=== PATIENT | female | born 1990 | race Caucasian/White ===

== ENCOUNTER → 2018-01-09 10:19 | Outpatient (CLI) | payer OTHER, SELFPAY ==
[2018-01-09 11:02] LABS: Add Manual Diff / Slide Review NO; Basophils Percent Auto 0.8 % (0-2); Eosinophils Percent Auto 0.6 % (2-4); Hematocrit 35.5 % (36-46); Hemoglobin 12.3 g/dL (12.0-16.0); Lymphocytes Percent Auto 23.2 % (25-40); Mean Corpuscular HGB Conc 34.6 % (30-36); Monocytes Percent Auto 5.5 % (3-14); Neutrophils Absolute Auto 4200 /uL (3000-5900); Neutrophils Percent Auto 69.9 % (50-75); Platelet Count 228 X10^3/uL (150-400); Red Blood Cell Count 4.38 X10^6/uL (4.0-5.2); Red Cell Distribution Width 14.2 % (11.6-14.8)
[2018-01-09 13:59] LABS: Hepatitis B Surface Antigen NEGATIVE s/c (NEGATIVE); Rubella Antibody IgG 1.7 IU/mL (>15)
[2018-01-09 15:20] LABS: HIV 1 and 2 Antibody NEGATIVE (NEGATIVE); Hep C Virus Ab w/Reflex Quant NEGATIVE s/c (NEGATIVE)
[2018-01-11 14:40] LABS: HSV 2 IGG AB < 0.90 index (< 0.90); HSV1IGG < 0.90 index (< 0.90)
[2018-01-16 09:10] LABS: Rapid Plasma Reagin NON REACTIVE
== END ==
PROVIDERS: Visit Provider Specialist
DX: Z34.91 Encounter for supervision of normal pregnancy, unspecified, first trimester (principal)
CPT/HCPCS: 36415; 80055; 86695; 86696; 86703; 86787; 86803; 86850; 86900; 86901; 87086

== ENCOUNTER 2018-05-23 11:11 | Emergency (ER) | payer OTHER, SELFPAY ==
[2018-05-23 11:13] VITALS: BP 125/80; PULSE 100; RESP 18; TEMP 36.4; O2SAT 98; BMI 60.6
--- NOTE | 2018-05-23 12:22 | ED.FEMALEGU ---
HPI - Female Genitourinary <ARETHA Lombardi - Last Filed: 05/23/18 21:51> General Chief complaint: Urogenital-Female Stated complaint: UTI SPREAD TO KIDNEYS Time Seen by Provider: 05/23/18 12:05 Source: patient Mode of arrival: ambulatory Limitations: no limitations History of Present Illness HPI Narrative: 28-year-old healthy female that is a nonsmoker that is currently 29 weeks she is 2 para 1. She is here for complaint of having urinary frequency and right flank pain over the past day. She was treated over the phone of for urinary tract infection by her Ob and has been taking Macrobid. She reports that the symptoms have not resolved. She denies having any fever. No nausea vomiting. No abdominal pain. She denies any vaginal discharge or bleeding. She is tolerating p.o. intake well. Complaint: UTI Related Data Home Medications Medication Instructions Recorded Confirmed nitrofurantoin monohyd/m-cryst 1 tab PO BID 05/23/18 05/23/18 Previous Rx's Medication Instructions Recorded wpskyrrtnj-adpgwjsdngkgf-zitjzdcs 1 cap PO Q4H PRN #30 cap 01/25/18 50 mg-300 mg-40 mg capsule sulfamethoxazole-trimethoprim 1 tab PO Q12H #14 tab 05/23/18 Allergies Allergy/AdvReac Type Severity Reaction Status Date / Time Penicillins Allergy Mild Rash Verified 05/23/18 11:17 Review of Systems <ARETHA Lombardi - Last Filed: 05/23/18 21:51> Constitutional Denies chills, Denies fever(s), Denies lethargy and Denies weakness Eyes Denies change in vision, Denies eye discharge, Denies irritation and Denies loss of vision ENT Ears, Nose, Mouth, and Throat: Denies change in voice, Denies neck pain and Denies sore throat Cardiovascular Denies chest pain, Denies irregular heart rhythm, Denies lightheadedness, Denies palpitations, Denies dyspnea, Denies dyspnea on exertion and Denies orthopnea Respiratory Denies cough, Denies dyspnea, Denies dyspnea on exertion and Denies wheezing Gastrointestinal Gastrointestinal: Denies abdominal pain, Denies change in bowel habits, Denies diarrhea, Denies nausea and Denies vomiting Genitourinary Comments: Urinary frequency and right flank pain Musculoskeletal Denies neck pain Integumentary/Breasts Denies pruritus, Denies erythema, Denies rash and Denies wounds Neurologic Denies confusion, Denies loss of vision and Denies weakness Psychiatric Denies anxiety, Denies confusion, Denies depression, Denies homicidal ideation and Denies suicidal ideation Endocrine Denies palpitations Hematologic/Lymphatic Denies easy bruising Allergic/Immunologic Denies wheezing PFSH <ARETHA Lombardi - Last Filed: 05/23/18 21:51> Social History Smoking Status: Never smoker Social History Smoking Status: Never smoker Exam <ARETHA Lombardi - Last Filed: 05/23/18 21:51> Initial Vital Signs Initial Vital Signs: Vital Signs Temperature 97.5 F L 05/23/18 11:13 Pulse Rate 100 H 05/23/18 11:13 Respiratory Rate 18 05/23/18 11:13 Blood Pressure 125/80 05/23/18 11:13 Pulse Oximetry 98 05/23/18 11:13 Const General: cooperative and well developed Nutritional Appearance: well nourished Orientation: alert, awake, oriented x3 and not confused HENMT Mouth: oral mucosae normal and moist mucous membranes Eyes Conjunctivae: conjunctivae normal Sclera: sclerae normal Pupils: PERRL EOM: EOM intact bilaterally Resp Effort & Inspection: normal respiratory effort, able to speak in complete sentences, no respiratory distress and no use of accessory muscles Auscultation: clear to auscultation bilaterally, no rales, no rhonchi and no wheezes Cardio Rate: regular rate Rhythm: regular rhythm Heart Sounds: no click, no gallops, no murmurs and no rubs GI Inspection: non-distended Palpation: soft, no hepatosplenomegaly, No guarding, No pulsatile mass and No tender Auscultation: normal bowel sounds General: No CVA tenderness Skin General: no rashes or lesions noted, No jaundice and No petechiae Neuro General: alert, oriented x3, gait normal and no focal motor deficits Speech: speech normal <Bryon Stark DO - Last Filed: 05/24/18 18:21> Initial Vital Signs Initial Vital Signs: Vital Signs Temperature 97.5 F L 05/23/18 11:13 Pulse Rate 100 H 05/23/18 11:13 Respiratory Rate 18 05/23/18 11:13 Blood Pressure 125/80 05/23/18 11:13 Pulse Oximetry 98 05/23/18 11:13 Course <ARETHA Lombardi - Last Filed: 05/23/18 21:51> Orders Ordered: ED Orders 05/23/18 12:20 Urine Microscopic Stat 05/23/18 13:14 Urine Culture Stat Vital Signs - 8 hr 05/23/18 11:13 05/23/18 12:25 05/23/18 12:51 Temperature 97.5 F L Pulse Rate 100 H 109 H 94 H Respiratory Rate 18 17 Blood Pressure 125/80 Blood Pressure [Right Arm] 117/65 Pulse Oximetry 98 98 <Bryon Stark DO - Last Filed: 05/24/18 18:21> Orders Ordered: ED Orders 05/23/18 12:20 Urine Microscopic Stat 05/23/18 13:14 Urine Culture Stat Vital Signs - 8 hr 05/23/18 11:13 05/23/18 12:25 05/23/18 12:51 Temperature 97.5 F L Pulse Rate 100 H 109 H 94 H Respiratory Rate 18 17 Blood Pressure 125/80 Blood Pressure [Right Arm] 117/65 Pulse Oximetry 98 98 MDM - Female Genitourinary <ARETHA Lombardi - Last Filed: 05/23/18 21:51> Lab Data Lab Results 05/23/18 Range/Units 12:20 Urine RBC None seen (0-5/HPF) Urine WBC 5-10/hpf H (0-5/HPF) Ur Squamous Epith Cells 10-30 /hpf H Urine Bacteria None seen (None) Ur Culture Indicated? Cult not indicated Urine Dip Bedside Urine Glucose Negative Bedside Urine Bilirubin - Negative Bedside Urine Ketone +/- 5 Urine Specific [place] 1.030 Bedside Urine Occult Blood - Negative Bedside Urine pH 6.0 Bedside Urine Protein +/- 15 Bedside Urine Nitrite - Negative Bedside Urine Leukocytes +/- 15 Esterase MDM Narrative Medical decision making narrative: Urine dip was obtained and shows positive for leuko esterase and protein. Urine micro shows white count of 5 to 10 although a 10-30 epithelials. No urine culture or sensitivity is available at this timeframe. Urine culture is ordered and is pending. Will change antibiotic from Macrobid to Septra. Close follow up with OB in the next couple of days for re-evaluation. He [id number] Tylenol as needed for any discomfort. For any worsening symptoms return to the emergency room. Plenty of fluids. heart tones were obtained and were normal. <Bryon Stark DO - Last Filed: 05/24/18 18:21> Lab Data Lab Results 05/23/18 Range/Units 12:20 Urine RBC None seen (0-5/HPF) Urine WBC 5-10/hpf H (0-5/HPF) Ur Squamous Epith Cells 10-30 /hpf H Urine Bacteria None seen (None) Ur Culture Indicated? Cult not indicated Urine Dip Bedside Urine Glucose Negative Bedside Urine Bilirubin - Negative Bedside Urine Ketone +/- 5 Urine Specific [place] 1.030 Bedside Urine Occult Blood - Negative Bedside Urine pH 6.0 Bedside Urine Protein +/- 15 Bedside Urine Nitrite - Negative Bedside Urine Leukocytes +/- 15 Esterase Discharge Plan Departure Patient Disposition: Home Clinical Impression: Urinary tract infection Qualifiers: Urinary tract infection type: acute cystitis Hematuria presence: without hematuria Qualified Code(s): N30.00 - Acute cystitis without hematuria Discharge Date/Time: 05/23/18 13:32 Interventions: ED Discharge Assessment Last Done: 05/23/18 13:31 Instructions: Urinary Tract Infection Activity Restrictions/Additional Instructions: Urinalysis indicates urinary tract infection. Will change antibiotic from a Macrobid to Septra to cover for starting kidney infection. Follow up with your primary care provider/OB in the next couple of days for re-evaluation. Plenty of fluids. Jihn-rvm-wwlfhqe Tylenol as needed for any discomfort. heart tones were obtained were normal. For any worsening symptoms return to the emergency room. Prescriptions: New sulfamethoxazole-trimethoprim 800-160 mg tablet 1 tab PO Q12H Qty: 14 RF: 0 No Action bigonqzduk-dlghybwvblest-qdhc [Fioricet] 50-300-40 mg capsule 1 cap PO Q4H PRN (Reason: migraine headache) Qty: 30 RF: 0 nitrofurantoin monohyd/m-cryst 100 mg capsule 1 tab PO BID RF: 0 Referrals: [facility] [Provider Group] <Bryon Stark DO - Last Filed: 05/24/18 18:21> Cosign ED Attending Marielature Attestation: I was immediately available in the department for consultation. Documentation has been reviewed. I agree with assessment and plan.
[2018-05-23 12:25] VITALS: BP 117/65; PULSE 109; RESP 17; O2SAT 98
[2018-05-23 12:49] LABS: Bacteria Urine None Seen; RBC Urine None Seen (0-5/HPF)
[2018-05-23 12:51] VITALS: PULSE 94
[2018-05-23 13:02] LABS: Culture Indicated Urine Cult Not Indicated; Squamous Epithelial Cell Urine 10-30 /HPF; WBC Urine 5-10/HPF (0-5/HPF)
== END 2018-05-23 13:32 | disposition home or self-care (01) ==
PROVIDERS: Emergency Provider Nurse Practitioner Family
DX: O23.43 Unspecified infection of urinary tract in pregnancy, third trimester (principal); Z3A.29 29 weeks gestation of pregnancy
CPT/HCPCS: 59025; 81003; 81015; 99283; G0378; G0379

== ENCOUNTER 2018-05-23 13:41 | Outpatient (CLI) | payer OTHER, SELFPAY | END 2018-05-23 14:55 | disposition home or self-care (01) | LOC: LABOR 14:30 → OB 05-25 11:39 | PROVIDERS: Visit Provider Family Medicine | DX: Z34.90 Encounter for supervision of normal pregnancy, unspecified, unspecified trimester (principal) | CPT/HCPCS: 59025; G0378; G0379 ==

== ENCOUNTER 2018-10-13 10:06 | Emergency (ER) | payer OTHER, SELFPAY ==
--- NOTE | 2018-10-13 10:43 | DI.RAD.S_ITS ---
PROCEDURE: XR ANKLE LT MIN 3V INDICATIONS: injury swelling TECHNIQUE: 3 views of the ankle were acquired. COMPARISON: None. FINDINGS: Bones: No fractures or dislocations. Ankle mortise is normally aligned. No suspicious bony lesions. Soft tissues: No tibiotalar joint effusion. Achilles tendon appears normal. IMPRESSION: No source of pain after trauma is seen. Dictated by: Jeremiah Dunn M.D. on 10/13/2018 at 11:19 Approved by: Jeremiah Dunn M.D. on 10/13/2018 at 11:19
--- NOTE | 2018-10-13 10:46 | ED.LOWEXIN ---
HPI - Extremity Injury (Lower) General Chief Complaint: Extremity Injury, Lower Stated Complaint: left ankle injury x1 day Time Seen by Provider: 10/13/18 10:40 Source: patient Mode of arrival: ambulatory Limitations: no limitations History of Present Illness HPI Narrative: Patient is a 28-year-old female who presents with left ankle pain. She says that she slipped going down a hill yesterday while caring her week old son. No other injury she heard a pop she is able to toe-touch. She denies numbness or tingling. She sprained her ankle before she says this hurts a little more. She has taken ibuprofen without much relief. complaint: ankle injury Onset (ago): day(s) (1) Related Data Home Medications Medication Instructions Recorded Confirmed nitrofurantoin monohyd/m-cryst 1 tab PO BID 05/23/18 05/23/18 Previous Rx's Medication Instructions Recorded rgxmeeujna-peawfxkvysfib-gzpwohoa 1 cap PO Q4H PRN #30 cap 01/25/18 50 mg-300 mg-40 mg capsule sulfamethoxazole-trimethoprim 1 tab PO Q12H #14 tab 05/23/18 Allergies Allergy/AdvReac Type Severity Reaction Status Date / Time Penicillins Allergy Mild Rash Verified 05/23/18 11:17 Review of Systems Review of Systems GENERAL: Denies chills,fever HEENT: Denies throat pain RESPIRATORY: Denies dyspnea, cough, wheezing CARDIOVASCULAR: Denies chest pain, palpitations GASTROINTESTINAL: Denies nausea, vomiting MUSCULOSKELETAL: See HPI SKIN: No rash, no laceration, no pruritus NEUROLOGIC: Denies weakness, dizziness, headache, numbness 8 point review of systems is negative except for those stated above and HPI PFSH Medical History Patient denies significant medical history (Acute) Social History Smoking Status: Never smoker Social History Smoking Status: Never smoker Exam Initial Vital Signs Initial Vital Signs: Vital Signs Temperature 97.8 F 10/13/18 10:51 Pulse Rate 65 10/13/18 10:51 Respiratory Rate 18 10/13/18 10:51 Blood Pressure 108/80 10/13/18 10:51 Pulse Oximetry 100 10/13/18 10:51 GENERAL: Obese well-appearing female no acute distress CARDIOVASCULAR: peripheral pulses in tact, cap refill <2 sec RESPIRATORY: No respiratory distress, speaks in full sentences without difficulty EXTREMITIES: Normal range of motion, no clubbing or edema. Neurovascularly intact. Left ankle swelling lateral malleoli no gross bony deformities neurovascularly intact NEUROLOGICAL: Cranial nerves II through XII grossly intact. Normal gait and speech. SKIN: Warm, dry, no petechiae, no rashes or lesions. Course Orders Ordered: ED Orders 10/13/18 10:43 XR ankle LT min 3V Stat Vital Signs - 8 hr 10/13/18 10:51 10/13/18 11:40 Temperature 97.8 F Pulse Rate 65 71 Respiratory Rate 18 15 Blood Pressure 108/80 Blood Pressure [Left Arm] 114/63 Pulse Oximetry 100 100 MDM - Extremity Injury (Lower) Imaging Data Left ankle: Radiologist's impression: PROCEDURE: XR ANKLE LT MIN 3V INDICATIONS: injury swelling TECHNIQUE: 3 views of the ankle were acquired. COMPARISON: None. FINDINGS: Bones: No fractures or dislocations. Ankle mortise is normally aligned. No suspicious bony lesions. Soft tissues: No tibiotalar joint effusion. Achilles tendon appears normal. IMPRESSION: No source of pain after trauma is seen. Dictated by: Jeremiah Dunn M.D. on 10/13/2018 at 11:19 Approved by: Jeremiah Dunn M.D. on 10/13/2018 at 11:19 Discharge Plan Departure Patient Disposition: Home Clinical Impression: Ankle sprain and strain Discharge Date/Time: 10/13/18 12:01 Interventions: ED Discharge Assessment Last Done: 10/13/18 12:01 Instructions: Ankle Sprain Activity Restrictions/Additional Instructions: *You have been diagnosed with left ankle sprain *What to do: No fracture identified today. Increase activity as tolerated. Breast ice elevate. May require physical therapy if still having pain. May also require repeat x-ray in 7-10 days with her PCP still having excruciating pain. *Continue to take medications as directed *Follow up with your primary care provider in 2-3 days *Return to ER if you should have increasing pain swelling, or any new, worsening or concerning symptoms Prescriptions: No Action uzojhvgbml-wqvsdxkrmdheq-pedb [Fioricet] 50-300-40 mg capsule 1 cap PO Q4H PRN (Reason: migraine headache) Qty: 30 RF: 0 nitrofurantoin monohyd/m-cryst 100 mg capsule 1 tab PO BID RF: 0 sulfamethoxazole-trimethoprim 800-160 mg tablet 1 tab PO Q12H Qty: 14 RF: 0
[2018-10-13 10:51] VITALS: BP 108/80; PULSE 65; RESP 18; TEMP 36.6; O2SAT 100; BMI 133.7
[2018-10-13 11:40] VITALS: BP 114/63; PULSE 71; RESP 15; O2SAT 100
== END 2018-10-13 12:01 | disposition home or self-care (01) ==
PROVIDERS: Emergency Provider Emergency Medicine
DX: S93.402A Sprain of unspecified ligament of left ankle, initial encounter (principal); W18.49XA Other slipping, tripping and stumbling without falling, initial encounter
CPT/HCPCS: 73610; 99282; 99283

== ENCOUNTER 2019-01-08 07:09 | Emergency (ER) | payer OTHER, SELFPAY ==
[2019-01-08 07:20] VITALS: BP 129/81; PULSE 74; RESP 16; TEMP 36.5; O2SAT 100; BMI 63.1
--- NOTE | 2019-01-08 07:36 | ED_ITS ---
HPI - URI/Sore Throat General Chief Complaint: Upper Respiratory Symptoms Stated Complaint: something lodged in throat Time Seen by Provider: 01/08/19 07:24 Source: patient Mode of arrival: Ambulatory Limitations: no limitations History of Present Illness HPI Narrative: Patient is a 28 female who presents with something stuck in her throat. She says that yesterday she was eating a sandwich with moore on it she did not to the moore all the way she felt it go down but may be get stuck. She was drinking water to get it to go the rest of the way down she was doing fine afterwards. However last night when she laid down to go to sleep she was woken by extreme acid reflux. She also is noticing that it still feels some discomfort in her sockets. She is able to eat and drink normally she denies any shortness of breath nausea vomiting or abdominal pain. She does have a history of acid reflux she took Zantac. Related Data Home Medications Medication Instructions Recorded Confirmed nitrofurantoin monohyd/m-cryst 1 tab PO BID 05/23/18 05/23/18 Previous Rx's Medication Instructions Recorded hswowzkjce-dtxkftyhrmpsj-cgdovzmk 1 cap PO Q4H PRN #30 cap 01/25/18 50 mg-300 mg-40 mg capsule sulfamethoxazole-trimethoprim 1 tab PO Q12H #14 tab 05/23/18 Allergies Allergy/AdvReac Type Severity Reaction Status Date / Time Penicillins Allergy Mild Rash Verified 05/23/18 11:17 Review of Systems Review of Systems Narrative: GENERAL: Denies chills, fatigue, malaise, fever, sweats, travel HEENT: See HPI RESPIRATORY: Denies dyspnea, cough, wheezing, hemoptysis, sputum. CARDIOVASCULAR: Denies chest pain, palpitations, orthopnea, edema GASTROINTESTINAL: Denies nausea, vomiting, abdominal pain, diarrhea, constipation, melena. : Denies dysuria, frequency, incontinence, hematuria, urinary retention, flank pain. MUSCULOSKELETAL: Denies weakness, joint pain, or bony pain SKIN: No rash, no erythema, no pruritus NEUROLOGIC: Denies weakness, dizziness, headache, numbness, change in speech, confusion PSYCHIATRIC: No concerning psychosocial issues. 12 point review of systems is negative except for those stated above and HPI [facility] Medical History Patient denies significant medical history (Acute) Social History Smoking Status: Never smoker Social History Smoking Status: Never smoker Exam Initial Vital Signs Initial Vital Signs: Vital Signs Temperature 97.7 F 01/08/19 07:20 Pulse Rate 74 01/08/19 07:20 Respiratory Rate 16 01/08/19 07:20 Blood Pressure 129/81 01/08/19 07:20 Pulse Oximetry 100 01/08/19 07:20 GENERAL: Overweight young female and in no acute distress. HEENT: Head atraumatic,EOMI, pupils reactive, face symmetric CARDIOVASCULAR: Regular rate and rhythm without murmurs, rubs or gallops. RESPIRATORY: Breath sounds equal bilaterally, no wheezes rales or rhonchi. ABDOMEN: Soft, nontender. Normoactive bowel sounds all 4 quadrants. No guarding or rebound. EXTREMITIES: Normal range of motion, no clubbing or edema. Neurovascularly intact NEUROLOGICAL: Alert and oriented x4.Normal gait and speech. Cranial nerves II through XII grossly intact. SKIN: Warm, dry, no laceration, no petechiae, no rashes or lesions. Course Orders Ordered: Discontinued Medications Al Hydrox/Mg Hydrox/Simethicone 20 ml/ Lidocaine HCl 15 ml 0 ml PO NOW ONE Stop: 01/08/19 07:39 Last Admin: 01/08/19 07:52 Dose: 20 ml Documented by: MOOK Vital Signs Vital signs: Vital Signs - 8 hr 01/08/19 07:20 01/08/19 08:17 Temperature 97.7 F Pulse Rate 74 76 Respiratory Rate 16 16 Blood Pressure 129/81 Blood Pressure [Left Arm] 112/85 Pulse Oximetry 100 100 MDM - URI/Sore Throat MDM Narrative Medical decision making narrative: She felt a little bit better after Coke. She felt like the ball in her throat went away. Difficult to tell after the GI cocktail but overall feels little bit better. Does not sound as though impacted or obstructed esophageal foreign body. She is managing her own secretions she is able to eat and drink. Think this is more likely irritation to the esophagus is after unchewed piece of moore. Discharge Plan Departure Patient Disposition: Home Clinical Impression: Esophagus, foreign body Qualifiers: Encounter type: initial encounter Qualified Code(s): T18.108A - Unspecified foreign body in esophagus causing other injury, initial encounter Discharge Date/Time: 01/08/19 08:18 Instructions: Steakhouse Syndrome Activity Restrictions/Additional Instructions: *You have been diagnosed with esophageal foreign body *What to do: The food has likely scrape the inside of her esophagus which is what you are feeling. This should heal over the next few days. If it is still causing discomfort I recommend that he see your primary care physician in may require further testing *Continue to take medications as directed Continue her acid reflux medicine as prescribed *Follow up with your primary care provider in 2-3 days *Return to ER if you should have increased pain, difficulty breathing inability to swallow or any new, worsening or concerning symptoms Prescriptions: No Action mnjyajwaqj-cwpjfkwiantgs-hfls [Fioricet] 50-300-40 mg capsule 1 cap PO Q4H PRN (Reason: migraine headache) Qty: 30 RF: 0 nitrofurantoin monohyd/m-cryst 100 mg capsule 1 tab PO BID RF: 0 sulfamethoxazole-trimethoprim 800-160 mg tablet 1 tab PO Q12H Qty: 14 RF: 0 Referrals: [facility] [Outside]
--- NOTE | 2019-01-08 07:37 | PC.NURSE ---
pt AAOx3 and managing secretions. reports she ate a sandwich yesterday and thinks a piece of moore scratched her throat. reports on occasion feeling like she needs to burp which relieves the sensation for a few seconds. given soda to sip on which she is managing appropriately. plan for GI cocktail. will monitor
[2019-01-08] MEDS: MAG HYDROX/ALUMINUM/SIMETH SUS 20 ML, LIDOCAINE VISCOUS 2% 15 ML PO (07:52)
[2019-01-08 08:17] VITALS: BP 112/85; PULSE 76; RESP 16; O2SAT 100
== END 2019-01-08 08:18 | disposition home or self-care (01) ==
PROVIDERS: Emergency Provider Emergency Medicine
DX: T18.108A Unspecified foreign body in esophagus causing other injury, initial encounter (principal)
CPT/HCPCS: 99283

== ENCOUNTER 2022-03-17 18:31 | Emergency (ER) | payer OTHER, SELFPAY ==
[2022-03-17 19:00] VITALS: BP 145/87; PULSE 90; RESP 15; TEMP 36.8; O2SAT 100; BMI 52.9
[2022-03-17] MEDS: IBUPROFEN 400 MG TABLET 800 MG PO (19:10)
[2022-03-17 19:56] LABS: Influenza A - CEPHEID Flu A POSITIVE (NEGATIVE); Influenza B - CEPHEID Flu B NEGATIVE (NEGATIVE); Respiratory Syncytial Virus Negative (Negative)
[2022-03-17 20:03] LABS: COVID-19 CEPHEID 4-PLEX PCR Negative (Negative)
[2022-03-17 20:59] VITALS: BP 143/90; PULSE 83; RESP 17; O2SAT 98
--- NOTE | 2022-03-17 21:31 | ED.GENADULT ---
HPI - General Adult General Chief complaint: Upper Respiratory Symptoms Stated complaint: Fever 102, Coughing up brown mucus Time Seen by Provider: 03/17/22 21:01 Source: patient Mode of arrival: Ambulatory History of Present Illness HPI narrative: 31-year-old woman with a history of PCOS currently on pioglitazone for weight loss for a weight loss clinic but does not have a primary care doctor presents on day 3 with fever, cough, body aches, runny nose complains low pelvic pain and back pain that was worse yesterday seems to be getting better today. Her son was diagnosed with influenza on Tuesday in her was diagnosed with COVID on Tuesday. She is had some thick mucus/sputum production after taking Mucinex. She is not complaining of wheezing. She has had a headache, weakness and fatigue. At some point in the past, she had abdominal pain and was eventually diagnosed with a lower lobe pneumonia. At this point she is fairly adamant about requesting a chest x-ray to confirm that she does not have pneumonia. Related Data Home Medications Medication Instructions Recorded Confirmed nitrofurantoin 1 tab PO BID 05/23/18 05/23/18 monohydrate/macrocrystals 100 mg capsule Previous Rx's Medication Instructions Recorded grghyikdya-ubnzqrafzttxw-nauxtxgy 1 cap PO Q4H PRN migraine headache 01/25/18 50 mg-300 mg-40 mg capsule #30 caps (Fioricet) sulfamethoxazole 800 1 tab PO Q12H #14 tabs 05/23/18 mg-trimethoprim 160 mg tablet oxycodone-acetaminophen 5 mg-325 1 tab PO Q6H PRN pain #10 tabs 03/17/22 mg tablet Allergies Allergy/AdvReac Type Severity Reaction Status Date / Time Penicillins Allergy Mild Rash Verified 03/17/22 19:00 Review of Systems Review of Systems Narrative: Remainder of complete review of systems is otherwise unremarkable except for that included in the HPI. Patient History Medical History (Updated 03/17/22 @ 21:39 by Rachel Watters MD) Patient denies significant medical history Social History Smoking Status: Never smoker Smoking Status: Never smoker alcohol intake frequency: 0-2 drinks per day Substance Use Type: does not use Exam Initial Vital Signs Initial Vital Signs: Vital Signs Temperature 98.3 F 03/17/22 19:00 Pulse Rate 90 03/17/22 19:00 Respiratory Rate 15 03/17/22 19:00 Blood Pressure 145/87 H 03/17/22 19:00 Pulse Oximetry 100 03/17/22 19:00 Oxygen Delivery Method 03/17/22 19:00 General: Appears to feel generally unwell but in no acute distress. Able to give a complete and coherent history. Well-nourished well-developed HEENT: Moist mucous membranes, mildly injected sclera with reactive pupils, Neck: No cervical adenopathy, supple Respiratory: Lungs are clear to auscultation, no wheezing no rales no rhonchi. Full and symmetrical air movement Cardiac: Regular rate and rhythm no murmurs no bruits Abdomen: Soft, nontender, good bowel tones, no flank pain Skin: Warm and dry, no rashes Neurologic: Grossly neurologically intact with no obvious asymmetries or abnormalities Extremities: No trauma, well perfused Psych: Cooperative, appropriate insight and affect Course Orders Ordered: ED Orders 03/17/22 21:33 XR chest 1V Stat Discontinued Medications Benzonatate (Benzonatate 100 Mg Capsule) 100 mg PO NOW ONE Stop: 03/17/22 21:32 Last Admin: 03/17/22 22:24 Dose: 100 mg Documented By: JORGE ALBERTO Ibuprofen (Ibuprofen 400 Mg Tablet) 800 mg PO NOW ONE Stop: 03/17/22 19:05 Last Admin: 03/17/22 19:10 Dose: 800 mg Documented By: NIGEL Oxycodone/Acetaminophen (Oxycodone/Apap 5/325 Prepack) 1 bottle MISC SEEINSTR ONE Stop: 03/17/22 21:32 Last Admin: 03/17/22 22:25 Dose: 1 bottle Documented By: JORGE ALBERTO Vital Signs Vital signs: Vital Signs - 8 hr 03/17/22 22:38 Temperature 99.2 F Pulse Rate 80 Respiratory Rate 16 Blood Pressure 133/75 Pulse Oximetry 98 Oxygen Delivery Method Room Air Medical Decision Making Lab Data Labs: Lab Results 03/17/22 Range/Units 19:04 SARS-CoV-2 (PCR) Negative (Negative) Influenza A (RT-PCR) Flu a positive H (NEGATIVE) Influenza B (RT-PCR) Flu b negative (NEGATIVE) RSV (PCR) Negative (Negative) MDM Narrative Medical decision making narrative: Otherwise healthy 31-year-old woman on day 3 of influenza a with classic symptoms of influenza A. Exam is benign. No rhonchi or wheezing appreciated on chest exam.. Discussed signs and symptoms of influenza and despite the fact that I reassured her that she does not have pneumonia based on her clinical exam she requests that we do a chest x-ray. Chest x-ray is unremarkable. Findings reviewed with patient, questions are answered and she is safe for discharge home Discharge Plan Departure Patient Disposition: Home Clinical Impression: Influenza A Instructions: DI for Influenza -- Adult Activity Restrictions/Additional Instructions: You tested positive for influenza A today. Your symptoms are very classic for influenza. I do not suspect a bacterial pneumonia at this time in your chest x-ray is unremarkable. Regarding the pelvic pain, the fact that it is waxing and waning in the setting of the significant cough, I do not think that additional workup is warranted in the emergency room today. Once the influenza and all symptoms have resolved if your continuing to have pelvic pain it would be very appropriate to follow-up with a primary care OBGYN physician for further evaluation. You can use Tessalon Perles to help with cough Your chest x-ray shows no acute pneumonia and is reassuring. Using 400 mg of ibuprofen (2 mtmp-xrq-akayfyn pills) and 1 Tylenol every 6 hours can be very helpful in controlling pain. For severe pain you can use 1 Percocet and 400 mg of ibuprofen I have given you a small prescription to help with the discomfort as your body gets through this acute virus. If you find that you are getting worse or develop any new symptoms, please feel free to return to the emergency department for further evaluation. Prescriptions: New oxycodone-acetaminophen 5-325 mg tablet 1 tab PO Q6H PRN (Reason: pain) Qty: 10 0RF No Action pfczursbeu-dllsznffownwz-pmqg [Fioricet] 50-300-40 mg capsule 1 cap PO Q4H PRN (Reason: migraine headache) Qty: 30 0RF Rx Instructions: Take one tablet by mouth at onset of headache nitrofurantoin monohyd/m-cryst 100 mg capsule 1 tab PO BID sulfamethoxazole-trimethoprim 800-160 mg tablet 1 tab PO Q12H Qty: 14 0RF Visit Report Forms: Patient Portal/API
--- NOTE | 2022-03-17 21:33 | DI.RAD.S_ITS ---
PROCEDURE: XR CHEST 1V INDICATIONS: productive cough, FluA + TECHNIQUE: One view of the chest was acquired. COMPARISON: None. FINDINGS: Surgical changes and devices: None. Lungs and pleura: Lungs are clear. No pleural effusions or pneumothorax. Mediastinum: Mediastinal contours appear normal. Heart size is normal. Bones and chest wall: No suspicious bony lesions. Overlying soft tissues appear unremarkable. IMPRESSION: 1. No acute cardiopulmonary disease. Dictated by: Brad Rome M.D. on 03/17/2022 at 23:36 Approved by: Brad Rome M.D. on 03/17/2022 at 23:36
[2022-03-17 21:36] VITALS: TEMP 37.2
[2022-03-17] MEDS: BENZONATATE 100 MG CAPSULE PO (22:24)
[2022-03-17] MEDS: OXYCODONE/APAP 5/325 PREPACK 1 BOTTLE MISC (22:25)
[2022-03-17 22:38] VITALS: BP 133/75; PULSE 80; RESP 16; TEMP 37.3; O2SAT 98
== END 2022-03-17 22:39 | disposition home or self-care (01) ==
PROVIDERS: Emergency Provider Emergency Medicine
DX: J10.1 Influenza due to other identified influenza virus with other respiratory manifestations (principal); Z20.822 Contact with and (suspected) exposure to COVID-19
CPT/HCPCS: 0241U; 71045; 99283

== ENCOUNTER → 2022-12-07 17:06 | Outpatient (CLI) | payer OTHER, SELFPAY ==
--- NOTE | 2022-12-07 | DI.US.S_ITS ---
PROCEDURE: US OB <= 14 WEEKS FETUS INDICATIONS: ABNORMAL HCG OUTSIDE/PRIOR DATING DATA: Last menstrual period (LMP): 10/19/2022 LMP-based estimated date of delivery (KELLEY): 07/26/2023. First dating scan (date and location): 12/07/2022. Estimated date of delivery (KELLEY) from first dating scan: 08/01/2023. TECHNIQUE: Real-time scanning was performed of the fetus and maternal pelvic organs, with image documentation. Endovaginal scanning was also performed to better visualize the fetus and maternal ovaries. COMPARISON: [facility], US, US OB <= 14 WEEKS FETUS, 01/09/2018, 9:38. None. FINDINGS: Embryo: [place]-rump length measures 4 mm corresponding to 6 weeks 1 day. Heart rate: 175 bpm Maternal organs: Ovaries not well seen. IMPRESSION: 6 week 1 day single living IUP corresponding to ultrasound KELLEY of 08/01/2023. We strive to produce accurate, complete, and clear reports of imaging services. To assist us in improving patient care, this report was composed using standard report templates and voice recognition software. Therefore, it may contain abnormal punctuation, insertions and/or omissions. Occasional wrong-word or sound-alike substitutions may occur. Though we review the report and make efforts to correct it, we do recommend that the report be read carefully in proper context to recognize any text inaccuracies. Dictated by: Dontae WEBB Interpreted: Yonny Neal MD on 12/07/2022 at 20:26 Approved by: Yonny Neal M.D. on 12/08/2022 at 10:29
== END ==
PROVIDERS: Referring Provider Nurse Practitioner Adult Health; Visit Provider Nurse Practitioner Adult Health
DX: O02.81 Inappropriate change in quantitative human chorionic gonadotropin (hCG) in early pregnancy (principal); Z3A.01 Less than 8 weeks gestation of pregnancy
CPT/HCPCS: 76801

== ENCOUNTER 2023-01-21 09:00 | Emergency (ER) | payer OTHER, SELFPAY ==
[2023-01-21 09:14] VITALS: BP 189/96; PULSE 83; RESP 22; TEMP 36.6; O2SAT 98; BMI 39.5
--- NOTE | 2023-01-21 09:15 | ED_ITS ---
HPI - Anxiety General Chief Complaint: Anxiety Stated Complaint: mental health support/HX miscarriage Time Seen by Provider: 01/21/23 09:05 History of Present Illness HPI narrative: 32-year-old female nonsmoker without chronic medical history presents at the request of [facility] for evaluation. She states that she is had crippling anxiety since the unfortunate miscarriage which terminated her about 1 month ago. She denies suicidal or homicidal ideation but admits that she is having trouble caring for herself and her children. She has pervasive thoughts and can not seem to get a handle of it. She has no new medications or dietary change. No chest pain or shortness of breath, no fever or chills. She denies alcohol with the use of street drugs. She states that she has seen psychiatry at the [facility] and they are taking steps to help her but she was sent here for rule out of any underlying medical problem. Related Data Allergies Allergy/AdvReac Type Severity Reaction Status Date / Time Penicillins Allergy Mild Rash Verified 01/21/23 09:30 Review of Systems Review of Systems Narrative: GENERAL: Denies chills, fatigue, malaise, fever, sweats. HEENT: Denies sinus pain, ear pain, sore throat, difficulty swallowing, dizziness. RESPIRATORY: Denies dyspnea, cough, wheezing, hemoptysis, sputum. CARDIOVASCULAR: Denies chest pain, palpitations, orthopnea, edema, GASTROINTESTINAL: Denies nausea, vomiting, abdominal pain, diarrhea, constipation, melena. : Denies dysuria, frequency, incontinence, hematuria, urinary retention. MUSCULOSKELETAL: denies weakness, joint pain, or bony pain SKIN: Denies rash, skin lesions, or other NEUROLOGIC: Denies weakness, headache, numbness, change in speech, confusion, seizures, incoordination. PSYCHIATRIC: See HPI 12 point review of systems is negative except for those stated above Patient History Medical History (Updated 01/21/23 @ 11:47 by Bryon Stark DO) Patient denies significant medical history Social History Smoking Status: Never smoker Smoking Status: Never smoker alcohol intake frequency: 0-2 drinks per day Substance Use Type: does not use Exam Narrative Exam Narrative: GENERAL: [32] year old patient appears stated age. Well-developed patient, in mild distress. Tearful, anxious HEAD: Atraumatic. Normocephalic. EYES: Pupils equal round and reactive. Extraocular motions intact. No scleral icterus. No injection or drainage. ENT: Nose without bleeding, purulent drainage. Throat without erythema, tonsillar hypertrophy or exudate. Airway patent. NECK: Trachea midline. Non tender CARDIOVASCULAR: Regular rate and rhythm without murmurs, gallops, or rubs. RESPIRATORY: Clear to auscultation. Breath sounds equal bilaterally. No wheezes, rales, or rhonchi. GASTROINTESTINAL: Abdomen soft, non-tender, nondistended. EXTREMITIES: No edema or joint tenderness. BACK: Nontender without deformity or crepitance. No flank tenderness. NEURO: AOx3. SKIN: No rash or erythema of visible areas Initial Vital Signs Initial Vital Signs: Vital Signs Temperature 98 F 01/21/23 09:14 Pulse Rate 83 01/21/23 09:14 Respiratory Rate 22 01/21/23 09:14 Blood Pressure 189/96 H 01/21/23 09:14 Pulse Oximetry 98 01/21/23 09:14 Oxygen Delivery Method Room Air 01/21/23 09:14 Course Orders Ordered: ED Orders 01/21/23 09:21 Consult to WEAPONS SYSTEM INSTRUMENT MECHANIC - Fibre Optic Cable Splicer Stat 01/21/23 10:20 Complete Blood Count AUTO DIFF Stat Comprehensive Metabolic Panel Stat Magnesium Stat TSH [Thyroid Stimulating Hormone] Stat 01/21/23 10:40 Urine Microscopic Stat Vital Signs Vital signs: Vital Signs - 8 hr 01/21/23 09:14 Temperature 98 F Pulse Rate 83 Respiratory Rate 22 Blood Pressure 189/96 H Pulse Oximetry 98 Oxygen Delivery Method Room Air MDM - Anxiety Lab Data 01/21/23 10:20 01/21/23 10:20 Labs: Lab Results 01/21/23 01/21/23 Range/Units 10:20 10:40 WBC 6.4 (4.5-11.0) X10^3/uL RBC 4.38 (4.0-5.2) X10^6/uL Hgb 12.2 (12.0-16.0) g/dL Hct 35.6 L (36-46) % MCV 81.3 (80-100) fL MCH 27.8 (26-34) PG MCHC 34.2 (30-36) % RDW 13.6 (11.6-14.8) % Plt Count 226 (150-400) X10^3/uL Neut % (Auto) 72.8 (50-75) % Lymph % (Auto) 20.5 L (25-40) % [place] % (Auto) 5.6 (3-14) % Eos % (Auto) 0.4 L (2-4) % Baso % (Auto) 0.7 (0-2) % Neut # (Auto) 4700 (7862-8533) /uL Lymph # (Auto) 1300 (8279-4447) /uL [place] # (Auto) 400 (0-900) /uL Eos # (Auto) 0 (0-450) /uL Baso # (Auto) 0 (0-100) /uL Sodium 139 (137-145) mmol/L Potassium 3.9 (3.4-5.1) mmol/L Chloride 104 (98-107) mmol/L Carbon Dioxide 28 (22-32) mmol/L BUN 13 (7-17) mg/dL Creatinine 0.59 (0.52-1.04) mg/dL Estimated GFR > 60 (>60) mL/min BUN/Creatinine Ratio 22.0 (6-22) Glucose 94 (70-100) mg/dL Calcium 9.4 (8.4-10.2) mg/dL Magnesium 2.1 (1.6-2.3) mg/dL Total Bilirubin 0.6 (0.2-1.3) mg/dL AST 20 (14-36) IU/L ALT 22 (<35) IU/L Alkaline Phosphatase 37 L (38-126) U/L Total Protein 7.3 (6.3-8.2) g/dL Albumin 4.2 (3.5-5.0) g/dL Globulin 3.1 (1.7-4.1) g/dL Albumin/Globulin Ratio 1.4 (1.0-2.8) TSH 1.11 (0.47-4.68) uIU/mL Urine RBC 0-1/hpf (0-5/HPF) Urine WBC 1-5/hpf (0-5/HPF) Ur Squamous Epith Cells 1-5 /hpf D (0-5/HPF) Urine Bacteria Few (2-10) H (None) Ur Culture Indicated? Cult not indicated Point of Care Testing Test Results Negative Urine Dip Bedside Urine Glucose Negative Bedside Urine Bilirubin - Negative Bedside Urine Ketone - Negative Bedside Urine Occult Blood - Negative Bedside Urine Protein - Negative Bedside Urine Urobilinogen - Negative Bedside Urine Nitrite - Negative Bedside Urine Leukocytes +/- 15 Esterase MDM Narrative Medical decision making narrative: [32] year old patient presents with severe anxiety Multiple etiologies for patient's symptoms considered including, but not limited to: [Anxiety versus underlying medical condition such as electrolyte abnormality, renal, thyroid or other] Prior Charts reviewed in our EMR Primary Historian: patient Labs reviewed and interpreted by myself: No significant abnormalities requiring intervention Consultations: WEAPONS SYSTEM INSTRUMENT MECHANIC see note for details Patient with severe, crippling anxiety bordering grave disability. Thankfully she has no suicidal or homicidal ideation. 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 It is my opinion that it would be incredibly valuable to her health and safety as well as that of the children if her were with her Discharge Plan Departure Patient Disposition: Home Clinical Impression: Anxiety, Depression Instructions: DI for Anxiety -- Adult Activity Restrictions/Additional Instructions: *You have been diagnosed with [severe anxiety and depression, possible hormone dysregulation status post miscarriage] *What to do: *Please continue to take your regular medications as directed. [ ] New medication prescriptions sent to your pharmacy: [ ] [ ] New medication written as a paper prescription [ ] No new medications given *Please follow up with your primary care provider in 2-3 days, call for an appointment. Let them know you were seen in the Emergency Department and that we ask that you be seen in follow up. We will electronically transmit a record of today's note if your PCP is in our system *If you do not have a primary care provider please contact the [facility] Resource line at [phone]. They will ask some questions about your medical history and help get you set up with a doctor in the community. *Return to Emergency Department if you should have any new, worsening or concerning symptoms, such as [fever greater than 101 F, shaking chills, worsening pain, persistent vomiting or other bothersome symptoms] Referrals: Miscellaneous,Doctor, MD [Primary Care Provider] - Stand Alone Forms: Patient Portal/API
[2023-01-21 10:24] LABS: Add Manual Diff / Slide Review NO; Basophils Absolute Auto 0 /uL (0-100); Basophils Percent Auto 0.7 % (0-2); Eosinophils Absolute Auto 0 /uL (0-450); Eosinophils Percent Auto 0.4 % (2-4); Hematocrit 35.6 % (36-46); Hemoglobin 12.2 g/dL (12.0-16.0); Lymphocytes Absolute Auto 1300 /uL (1100-4500); Lymphocytes Percent Auto 20.5 % (25-40); Mean Corpuscular HGB Conc 34.2 % (30-36); Mean Corpuscular Hemoglobin 27.8 PG (26-34); Mean Corpuscular Volume 81.3 fL (80-100); Monocytes Absolute Auto 400 /uL (0-900); Monocytes Percent Auto 5.6 % (3-14); Neutrophils Absolute Auto 4700 /uL (1500-7000); Neutrophils Percent Auto 72.8 % (50-75); Platelet Count 226 X10^3/uL (150-400); Red Blood Cell Count 4.38 X10^6/uL (4.0-5.2); Red Cell Distribution Width 13.6 % (11.6-14.8); White Blood Cell Count 6.4 X10^3/uL (4.5-11.0)
[2023-01-21 10:44] LABS: Alanine Aminotransferase 22 IU/L (<35); Albumin 4.2 g/dL (3.5-5.0); Albumin Globulin Ratio 1.4 (1.0-2.8); Alkaline Phosphatase 37 U/L (38-126); Aspartate Aminotransferase 20 IU/L (14-36); Bilirubin Total 0.6 mg/dL (0.2-1.3); Blood Urea Nitrogen 13 mg/dL (7-17); Calcium 9.4 mg/dL (8.4-10.2); Carbon Dioxide 28 mmol/L (22-32); Chloride 104 mmol/L (98-107); Estimated Glomerular Filt Rate > 60 mL/min (>60); Globulin 3.1 g/dL (1.7-4.1); Glucose 94 mg/dL (70-100); HEMOLYSIS < 15 (0-50); Magnesium 2.1 mg/dL (1.6-2.3); Potassium 3.9 mmol/L (3.4-5.1); Sodium 139 mmol/L (137-145); Total Protein 7.3 g/dL (6.3-8.2)
[2023-01-21 11:07] LABS: Bacteria Urine Few (2-10); RBC Urine 0-1/HPF (0-5/HPF); WBC Urine 1-5/HPF (0-5/HPF)
[2023-01-21 11:08] LABS: Culture Indicated Urine Cult Not Indicated; Squamous Epithelial Cell Urine 1-5 /HPF (0-5/HPF)
[2023-01-21 12:31] LABS: Thyroid Stimulating Hormone 1.11 uIU/mL (0.47-4.68)
--- NOTE | 2023-01-21 13:42 | PC.NURSE ---
see triage note
[2023-01-21 13:46] VITALS: BP 142/91; PULSE 81; RESP 18; O2SAT 98
--- NOTE | 2023-01-21 13:47 | CM.SWNOTE ---
ED MUSIC ASSISTANT Assessment Note Patient is 32 y/o female who presents to ED due to concern debilitating anxiety, depression and recent miscarriage. 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 Patient endorses difficulty managing as she is working from home and parenting her two children ages 4 and 8. Patient endorses her 8 y/o son has a new dx of ADHD and he has been struggling in school and recently started a new rx. Patient endorses prior to coming to ED she contacted [facility] and the [facility] recommended patient coming to the ED and recommended that patient contact the [facility] to inform patient's of her current situation. Patient presents as A/Ox4 and tearful. Patient endorses she was recently started on Zoloft. Patient denies HI and SI. Patient endorses concern with her ability to manage without the support of her spouse as she is not her normal self. Patient endorses she is normally the one who helps others but she cannot identify any local supports for herself at this time. Patient endorses her mother and family live in [place] and her mother visited earlier but needed to return home. Patient contemplating moving her and the kids temporarily to be with her mother during this time but states she would need her 's support to plan for this and discuss this plan. Patient endorses she will receive f/u from [facility] and . MUSIC ASSISTANT dispatches the [facility] to recommend that patient's spouse come home to assist in caring for patient and children and to identify next steps for patient. (Ph. # [phone]) Patient endorses hx of hormonal imbalance and PCOS and states that she is concerned that it could be a cause of patient's presentation. MUSIC ASSISTANT calls Dr. Francis's office and requests referral from ED for ED f/u regarding patient's recent miscarriage, hormonal imbalance and emotional response. It is reported that Dr. Francis's office will f/u with patient on Tuesday or Tuesday. Patient endorses she feels safe to d/c to home. MUSIC ASSISTANT provides patient with list of MH providers that accept her insurance. MUSIC ASSISTANT also provides lists of MH providers for patient's son per her request. Plan: Patient to d/c to home upon medical clearance, [facility] to f/u with patient, [facility] to f/u with patient, patient to seek MH provider as well. Dr. Francis's office to f/u with patient as well. Gaby Bryant, DIRECTOR LEARNING AND DEVELOPMENT
== END 2023-01-21 13:47 | disposition home or self-care (01) ==
PROVIDERS: Emergency Provider Emergency Medicine
DX: F41.9 Anxiety disorder, unspecified (principal); F32.A Depression, unspecified
CPT/HCPCS: 36415; 80053; 81003; 81015; 81025; 83735; 84443; 85025; 99282; 99283

== ENCOUNTER → 2024-05-13 15:17 | Outpatient (CLI) | payer OTHER, SELFPAY ==
[2024-05-13 16:41] LABS: Influenza A - CEPHEID Flu A POSITIVE (NEGATIVE); Influenza B - CEPHEID Flu B NEGATIVE (NEGATIVE); Respiratory Syncytial Virus Negative (Negative)
[2024-05-13 16:43] LABS: COVID-19 CEPHEID 4-PLEX PCR Negative (Negative)
== END ==
PROVIDERS: Visit Provider Nurse Practitioner Family
DX: R50.9 Fever, unspecified (principal); R52 Pain, unspecified
CPT/HCPCS: 0241U